=== PATIENT | female | born 1980 | race Caucasian/White ===

== ENCOUNTER 2017-10-06 06:15 | Inpatient (IN) | payer OTHER ==
[~2017-10-06 06:15] MED LIST: Buffered Lidocaine 0.9% SYRIN* 5 ML/SYR SYRINGE INTRADERM ONE; Clindamycin 900 MG IVPREMIX(* 900 MG/50 ML SDV IV ONE; Famotidine IV* 10 MG/ML 2 ML (20 mg) IV ONE; Famotidine IV* 10 MG/ML 2 ML (20 mg) ONE; ceFAZolin 1 GM in Dextrose (*) 1 GM/50 ML BAG IVPB ONE; ceFAZolin 2 GM in 100 MLS NS (*) BAG IVPB ONE
[2017-10-06] MEDS ORDERED: Methylene Blue 0.5 %* 50 MG/10 ML AMP IV ONE (06:41)
[2017-10-06] MEDS ORDERED: Bupivacaine 0.25% SDV* 30 ML ONE ×2 (06:42→08:12)
[2017-10-06] MEDS ORDERED: fentaNYL* 50 MCG/ML 2 ML VIAL (100 MCG VIAL) ONE ×2 (07:24→08:06)
[2017-10-06] MEDS ORDERED: Midazolam* 1 MG/ML 5 ML VIAL (5 MG) ONE (07:24)
[2017-10-06] MEDS ORDERED: Rocuronium* 10 MG/ML VIAL ONE (07:25)
[2017-10-06] MEDS ORDERED: Dexamethasone IV* 4 MG/ML 1 ML (4 MG) ONE (08:14)
[2017-10-06] MEDS ORDERED: Ondansetron INJ* 2 MG/ML VIAL ONE (08:14)
[2017-10-06] MEDS ORDERED: DiMENhydriNATE IV* 50 MG/ML VIAL ONE ×2 (08:14→10:15)
[2017-10-06] MEDS ORDERED: Propofol* 10 MG/ML 20 ML BTL IV PUSH ONE (08:14)
[2017-10-06] MEDS ORDERED: Succinylcholine* 20 MG/ML 10 ML VIAL ONE (08:14)
[2017-10-06] MEDS ORDERED: Ketorolac INJ* 30 MG/ML 1 ML VIAL ONE (08:14)
[2017-10-06] MEDS ORDERED: Lidocaine 2% PF * 5 ML VIAL ONE (08:15)
[2017-10-06] MEDS ORDERED: Acetaminophen IV 1GM/100ML * 1,000 MG/100 ML VIAL IVPB ONE (08:24)
[2017-10-06] MEDS ORDERED: DiMENhydriNATE IV* 50 MG/ML VIAL IV PUSH PRN (08:24)
[2017-10-06] MEDS ORDERED: Naloxone* 0.4 MG/ML 1 ML VIAL IV PRN (08:24)
[2017-10-06] MEDS ORDERED: HYDROmorphone INJ* 1 MG/ML CARPUJECT SYRINGE IV PRN (08:24)
[2017-10-06] MEDS ORDERED: HYDROmorphone INJ* 1 MG/ML CARPUJECT SYRINGE ONE (09:32)
[2017-10-06] MEDS ORDERED: Ondansetron INJ* 2 MG/ML VIAL IV PRN (09:42)
[2017-10-06] MEDS ORDERED: diPHENhydraMINE IV* 50 MG/ML 1 ml VIAL (BENADRYL) SLOW PUSH PRN (09:42)
--- NOTE | 2017-10-06 09:42 | BRIEFOPN ---
Brief Operative Note - Surgery Procedures: Pre-OP Diagnoses: Clinically severe obesity Post-op Diagnosis: same Procedure: Laparoscopic Kolby an Y gastric bypass Surgeon: Luther Asst: Sandeep Castrothegeorge: ALESSANDRO Munoz EBL: minimal IVF: crystalloid Specimen: none Drains: none
[2017-10-06] MEDS ORDERED: Acetaminophen IV 1GM/100ML * 100 ML ONE (09:54)
[2017-10-06] MEDS ORDERED: HYDROmorphone INJ* 2 MG/ML CARPUJECT SYRINGE ONE (09:58)
[2017-10-06] MEDS: Ketorolac INJ* 30 MG/ML 1 ML VIAL IV PRN ×2 (12:41→19:23)
[2017-10-06] MEDS: Heparin VIAL(*) 5000 UNITS/ML VIAL (FIVE THOUSAND) SUBCUT SCH ×2 (14:20→21:13)
[2017-10-06] MEDS: HYDROmorphone INJ* 2 MG/ML CARPUJECT SYRINGE IV PRN ×2 (15:08→21:09)
--- NOTE | 2017-10-06 20:37 | OP ---
[facility] JOSIAH Huerta * DATE OF OPERATION: 10/06/17 - ROOM #353 DATE OF : 80 SURGEON: Red Sloan MD RELATIONSHIP MANAGER: MACARENA Angelo ANESTHESIOLOGIST: Dr. Munoz. ANESTHESIA: General anesthesia. PRE-OP DIAGNOSIS: Clinically severe obesity. POST-OP DIAGNOSIS: Clinically severe obesity. OPERATIVE PROCEDURE: Laparoscopic Kolby-en-Y gastric bypass. ESTIMATED BLOOD LOSS: Minimal blood loss. FLUIDS: 2 L of crystalloid fluid given. SPECIMENS: None. DRAINS: None. DESCRIPTION OF PROCEDURE: The patient was identified in the preoperative area. Consent signed. Case discussed with her. We brought her back to the operating room table, placed her there and she received preoperative antibiotics. Sequential devices were placed on bilateral lower extremities and general anesthesia was induced. A Aguilera catheter was inserted. The patient's abdomen was prepped and draped in the standard surgical fashion and a time-out was performed. Folds of the umbilicus were elevated anteriorly and a Veress needle was inserted into the abdominal cavity, which was then allowed to insufflate to a pressure of 15 mmHg. The patient tolerated the insufflation well. Elliott between the xiphoid and the umbilicus, a 12-mm trocar was inserted just left of midline. Laparoscope was inserted through this and there was no evidence of injury from the trocar insertion or from the Veress needle. The Veress needle was then removed and additional trocars were then placed in the following position. A 12-mm and a 5-mm in the left upper quadrant and 12-mm and 5-mm in the right upper quadrant. Attention was turned towards the omentum. This was reflected superiorly. The transverse colon was identified and the small bowel was grasped. We identified the ligament of Treitz and ran off approximately 75 cm. The bowel was transected at this site and enterotomy was made and would become the biliopancreatic limb. Next, approximately 95 cm was counted off from this transected point, this would become the Kolby limb. Enterotomy was made at the site and a jejunojejunostomy was created in a typical fashion with a 60-mm phan RICK stapling device. The common enterotomy was reapproximated with interrupted 2-0 silk sutures in a figure-of- eight fashion and the mesenteric defect was similarly closed. Attention was then turned towards the upper abdomen. The patient was placed in a steep reverse Trendelenburg. The Bud retractor was inserted through the subxiphoid incision and the liver was retracted anterior to the right. This exposed the gastroesophageal fat pad. This fat pad was grasped and retracted towards the right lower quadrant. Blunt dissection was carried out to expose the left crura. Next, a retrogastric tunnel was made at approximately third crossing vessel on the lesser curvature. A 45-mm phan RICK stapling device was fired across this and we completed the stomach pouch and an additional 60-mm phan loaded RICK stapling device and then another 45-mm RICK stapling device. There was some oozing at the cut end of the 45 and a clip director child was used to gain hemostasis of this area. The stomach pouch and remnants were completely transected from one another and this was performed over an Liam tube. Next, the Kolby limb was grasped and brought up in apposition to the stomach pouch, it lay without tension. We then sutured it to the pouch with 2-0 silk sutures. Next, a gastrotomy was made over the Liam tube using cautery and an enterotomy was made as well. The 2 were made it with a 30-mm phan RICK stapling device using approximately 2-cm of the unit. The common defect was reapproximated with interrupted 3-0 silk sutures in a [id number] fashion. Next, the anastomosis was tested, placing the Liam tube through the anastomosis into the proximal Kolby limb, clamping the Kolby limb distal to this and injecting methylene blue with a gauze at the side of the anastomosis, which showed no evidence of blue dye. The blue dye was suctioned out by the anesthesiologist and the tube removed in its entirety. I did place a U-stitch for a second layer at the suture line with 3-0 silk sutures. The Bud retractor was removed without event. We looked at the jejunojejunostomy, this appeared intact. Hemostasis was excellent. The abdomen was allowed to collapse. Trocars were removed under direct vision and all 6 skin incisions were reapproximated with 4-0 Monocryl subcuticular sutures followed by sterile dressing. The patient tolerated the procedure well, was transferred to the PACU in stable condition. [id number]/[facility] #: [id number] MTDD
[2017-10-06] MEDS: Famotidine IV* 10 MG/ML 2 ML (20 mg) IV SLOW PU SCH (21:11)
[2017-10-07] MEDS: Ketorolac INJ* 30 MG/ML 1 ML VIAL IV PRN ×2 (00:58→16:59)
[2017-10-07] MEDS: Heparin VIAL(*) 5000 UNITS/ML VIAL (FIVE THOUSAND) SUBCUT SCH ×3 (05:32→22:13)
[2017-10-07] MEDS: HYDROmorphone INJ* 2 MG/ML CARPUJECT SYRINGE IV PRN (07:08)
[2017-10-07] MEDS: Famotidine IV* 10 MG/ML 2 ML (20 mg) IV SLOW PU SCH ×2 (08:33→22:15)
[2017-10-07] MEDS: D5W 1/2 NS KCl 20 Meq 1000 ML* 1,000 ML IV SCH ×2 (09:46→17:03)
--- NOTE | 2017-10-07 09:51 | PN ---
Progress Note - Progress Note Date of Service: 10/07/17 Note: Surgery Progress: S: POD #1. Some pain, relieved by dilaudid. No N/V. No BM or flatus. Ambulating. No SOB. O: Vital Signs - 8 hr 10/07/17 10/07/17 10/07/17 03:11 03:52 07:08 Temperature 97.8 F Pulse Rate 79 Respiratory 16 18 Rate Blood Pressure 146/75 (mmHg) O2 Sat by Pulse 97 99 Oximetry 10/07/17 10/07/17 10/07/17 07:36 08:00 08:32 Temperature 98.3 F Pulse Rate 60 Respiratory 14 16 18 Rate Blood Pressure 120/61 (mmHg) O2 Sat by Pulse 98 98 Oximetry Intake and Output Last 24 Hours 10/05/17 10/06/17 10/07/17 10/08/17 06:59 06:59 06:59 06:59 Intake Total 4346 1298 Output Total 780 Balance 3566 1298 Weight 254 lb Intake: IV Fluids 4346 1298 CEFAZOLIN 3 GM 150 CLINDAMYCIN 900 MG 50 LR 4146 1298 Oral 0 Output: Urine 750 Residual 30 Aguilera 16 Fr 30 Other: # Bowel Movements 0 Estimated Blood Loss MIN Comment Gen: NAD; comfortable Heart: reg Lungs: clear Abd: +BS; incisions covered w/ dsgs (dry); soft; mild incisional tenderness A: s/p lap gastric bypass, doing well P: start shasta clear liqs; cont to ambulate; use IS
[2017-10-07] MEDS: HYDROcodone/ACET. 7.5/325 LIQ* 15 ML UDC PO PRN (12:44)
--- NOTE | 2017-10-07 15:25 | PN ---
Progress Note - Progress Note Date of Service: 10/07/17 SOAP: Subjective: [POD #1. Patient seen and examined at bedside. Patient doing well today. Feels like she needs to pass gas. Abdominal pain well managed with pain meds. Rates her abdominal pain as a 4/10. Tolerating clear liquid diet. Denies N/V. No bowel movement. No issues with urination. Ambulating well independently. Denies CP or SOB. ] Objective: [ Selected Entries 10/07/17 10/07/17 07:36 11:23 Temperature 98.3 F 98.5 F Pulse Rate 60 61 Respiratory 14 14 Rate Blood Pressure 120/61 115/65 (mmHg) Blood Pressure 72 77 Mean O2 Sat by Pulse 98 99 Oximetry Intake & Output 10/07/17 10/07/17 10/07/17 06:59 14:59 22:59 Intake Total 959 1538 Output Total 200 500 Balance 759 1038 Intake: IV Fluids 959 1298 LR 959 1298 Oral 0 240 Output: Urine 200 500 Other: # Bowel Movements 0 General: 37 year old female sitting upright on hospital bed. NAD. Alert and orientated. Cardiac: RRR. No murmurs, rubs or gallops. Pulmonary: Lungs CTA throughout. No rhonchi, rales or wheezes appreciated. Abdomen: Inspection reveals obese abdomen with bandages over laparoscopic incision sites. No bleeding or drainage appreciated on bandages. + BS heard throughout. Abdomen is soft, mild tenderness to palpation. No hernias appreciated. No HSM. Extremities: Inspection reveals some areas of ecchymosis on the anterior thighs which she reports is from "lifting weights" before her surgery. No clubbing, cyanosis or edema appreciated. ] Assessment: [Patient doing well. Vitals stable; afebrile. Tolerating clear liquid diet without N/V. Ambulating well. Pain managed with medication. ] Plan: [Discharge tomorrow. Continue with current pain medication management. Continue clear liquid diet. Encourage incentive spirometry and ambulation. ]
[2017-10-08] MEDS: D5W 1/2 NS KCl 20 Meq 1000 ML* 1,000 ML IV SCH ×2 (00:59→08:56)
[2017-10-08] MEDS: HYDROcodone/ACET. 7.5/325 LIQ* 15 ML UDC PO PRN ×2 (01:38→08:57)
[2017-10-08] MEDS: Heparin VIAL(*) 5000 UNITS/ML VIAL (FIVE THOUSAND) SUBCUT SCH (05:58)
[2017-10-08 08:46] VITALS: BP 119/72
[2017-10-08] MEDS: Famotidine IV* 10 MG/ML 2 ML (20 mg) IV SLOW PU SCH (08:57)
--- NOTE | 2017-10-08 16:15 | DS ---
CC: [facility]; Amber Tan NP DISCHARGE SUMMARY: DATE OF ADMISSION: 10/06/17 DATE OF DISCHARGE: 10/08/17 HOSPITAL COURSE: Ms. Johnson is a 37-year-old female worked up as an outpatient with diagnosis of cli nically severe obesity. She presented on same day of surgery and underwent a laparoscopic gastric by pass. Please see operative report for full details. The patient's postoperative course was uneventful. Her Aguilera catheter was removed at the time of eleonora kirby. She voided well. She was advanced to a bariatric liquid diet on postoperative day 1. Pain wa s managed well and the patient was ready for discharge by postoperative day 2. PHYSICAL EXAMINATION ON DAY OF DISCHARGE: Vital Signs: The patient is afebrile. Vital signs are sta ble. General: Alert and oriented x3, in no apparent distress. Lungs: Clear to auscultation bilater ally. Abdomen: Soft. Mildly distended. Incisional tenderness. Dressings removed. No erythema. N o ecchymosis. No rebound tenderness. Extremities: Within normal limits. Postoperative day 2, status post laparoscopic gastric bypass. Plan is for discharge. The patient cooper s a followup appointment in 3 days at [facility]. She will re sume all her previous medications. [id number]/[facility] #: [id number]
== END 2017-10-08 11:45 | disposition home or self-care (01) | DRG 621 ==
LOC: AA 06:15 → SSU 12:27
PROVIDERS: ADMIT Surgery; ATTEND Surgery
PROC: 0D164ZA Bypass Stomach to Jejunum, Percutaneous Endoscopic Approach (ICD-10-PCS; principal; 2017-10-06 07:30)
DX: E66.01 Morbid (severe) obesity due to excess calories (principal); F32.9 Major depressive disorder, single episode, unspecified; F41.9 Anxiety disorder, unspecified; Z68.41 Body mass index [BMI] 40.0-44.9, adult; Z82.3 Family history of stroke; Z83.3 Family history of diabetes mellitus; Z83.49 Family history of other endocrine, nutritional and metabolic diseases; Z72.89 Other problems related to lifestyle; Z87.891 Personal history of nicotine dependence; Z91.09 Other allergy status, other than to drugs and biological substances
CPT/HCPCS: 43644; 81025; 94760; C1776; J0330; J0690; J1100; J1170; J1240; J1644; J1885; J2250; J2405; J2704; J3010